=== PATIENT | female | born 1950 | race African-American/Black ===

== ENCOUNTER 2017-12-05 21:30 | Emergency (ER) | payer MEDICARE, SELFPAY ==
[2017-12-05 21:31] VITALS: BP 158/93; PULSE 75; RESP 16; TEMP 36.2; O2SAT 98; BMI 28.4
--- NOTE | 2017-12-05 22:00 | ED.VISSUMM ---
- ER Visit Summary Date of Service: 12/05/17 Chief Complaint: Rash History of Present Illness: The patient is a 67 F has had some cough and congestion symptoms over the past couple of days. She has been taking a generic [id number] cold medicine for the past 2 or 3 days. Patient states she now has itching and slight rash diffusely over her body. She denies shortness of breath. She states this medication is the only thing different from her normal routine. Physical Examination: Vital signs gross unremarkable. Head neck examination normal. Heart is regular rate and rhythm. Lung sounds are clear. Abdomen is soft nontender. Skin examination feels mild follicular irritation on the arms. No evidence of hives. Test Results: [] Emergency Department Course and Treatment: Patient is treated with Vistaril and prednisone, first doses given here. Treatment Plan: [] Disposition: Discharge Impression: Allergic drug reaction This note was generated with [employer] dictation software. It may contain incorrect words, spelling, and punctuation that were not noted in review of the chart prior to signing ED Disposition - Plan for ED Patient: Disposition: Home or Assisted Living Chief Complaint: Rash Instructions: ED Drug React Allergic Prescriptions: hydrOXYzine pamoate capsule [Vistaril] 50 mg PO TID PRN PRN #30 capsule PRN Reason: Anxiety Prednisone [Deltasone] 60 mg PO DAILY #15 tablet Referrals: Jesus Cohen MD [Primary Care Provider] - 1 Week
--- NOTE | 2017-12-05 22:03 | DCINST.ED_ITS ---
ED Disposition - Plan for ED Patient: Disposition: Home or Assisted Living Chief Complaint: Rash Instructions: ED Drug React Allergic Prescriptions: hydrOXYzine pamoate capsule [Vistaril] 50 mg PO TID PRN PRN #30 capsule PRN Reason: Anxiety Prednisone [Deltasone] 60 mg PO DAILY #15 tablet Referrals: Jesus Cohen MD [Primary Care Provider] - 1 Week
[2017-12-05] MEDS: predniSONE 20 MG Tablet 60 MG PO (22:05)
[2017-12-05] MEDS: hydrOXYzine PAM 25 MG Capsule 50 MG PO (22:05)
== END 2017-12-05 22:10 | disposition home or self-care (01) ==
PROVIDERS: Emergency Provider Emergency Medicine; Family Provider Family Medicine; PCP Family Medicine
DX: L27.1 Localized skin eruption due to drugs and medicaments taken internally (principal); T50.905A Adverse effect of unspecified drugs, medicaments and biological substances, initial encounter; Y92.9 Unspecified place or not applicable; J44.9 Chronic obstructive pulmonary disease, unspecified; F32.9 Major depressive disorder, single episode, unspecified; Z79.899 Other long term (current) drug therapy; Z72.0 Tobacco use
CPT/HCPCS: 99283

== ENCOUNTER → 2018-02-21 12:08 | Outpatient (CLI) | payer MEDICARE, SELFPAY ==
--- NOTE | 2018-02-21 14:15 | NEURO_ITS ---
NCS and/or EMG Patient Report Ordering Doctor: Gian Quiñones DATE OF SERVICE: 02/21/18 Jagdeep Medina is a 67-year-old female presents for electrodiagnostic testing of the lower limbs. She reports intermittent numbness in both thighs while lying down. Electrodiagnostic findings: Peroneal motor nerve demonstrates normal distal latency, amplitude and conduction velocity bilaterally. Normal tibial motor response bilaterally. Normal peroneal and tibial F wave. Normal H reflex bilaterally. Borderline prolonged medial plantar responses are noted. Normal superficial peroneal and sural sensory responses bilaterally. Needle EMG testing shows no evidence of denervation in any muscles tested. Motor unit action potentials were of normal amplitude and duration. Electrodiagnostic impression: This is a normal electrodiagnostic study of the lower limbs. There is no electrodiagnostic evidence for peripheral polyneur opathy or lumbosacral radiculopathy. If there are any further questions please not hesitate to contact me
== END ==
PROVIDERS: Family Provider Family Medicine; PCP Family Medicine; Referring Provider Orthopaedic Surgery; Visit Provider Orthopaedic Surgery
DX: M79.604 Pain in right leg (principal)
CPT/HCPCS: 95886; 95912

== ENCOUNTER 2018-08-26 08:23 | Emergency (ER) | payer MEDICARE, SELFPAY ==
[2018-08-26 08:26] VITALS: BP 177/94; PULSE 89; RESP 17; TEMP 36.8; O2SAT 100; BMI 27.4
--- NOTE | 2018-08-26 08:40 | CT_ITS ---
We are attempting to reach Marleny Blankenship to discuss findings. An addendum with communication details will be sent when the communication is complete. STUDY: CTA OF THE BRAIN REASON FOR EXAM: Female, 68 years old. Headache for 2 weeks dizziness and family history of aneurysm RADIATION DOSAGE (If Supplied By Facility): CTDIvol = ( 29.64 ) mGy, DLP = ( 1457.63 ) mGycm TECHNIQUE: CT angiography was performed with a multi-detector CT scanner. Data acquisition was obtained from the skull base through the vertex following intravenous administration of 100 IV Isovue 370. MIP images were reconstructed from the axial data set. Post-processing of the angiographic images was performed, with multiplanar reformation and 3D reconstruction. Individualized dose optimization techniques were used for this CT. COMPARISON: None. FINDINGS: Normal bilateral petrous carotid arteries. There is a visualized focal outpouching of the anterior aspect of the right side distal cavernous carotid that measures 5.9 x 5.2 mm. There is calcified plaque formation of the left cavernous carotid artery, with a mild stenosis (less than 50%). Normal right A1 segments of the anterior cerebral artery. There is a hypoplastic left-sided A1. Normal intact anterior communicating artery (ACOM). Normal bilateral A2 segments of the anterior cerebral arteries. Normal right M1 and M2 segments of the middle cerebral arteries, with a normal M1 bifurcation. Normal left M1 and M2 segments of the middle cerebral arteries, with a normal M1 bifurcation. There is a persistent origin of the right posterior cerebral artery with absence of the posterior communicating artery (PCOM). Normal left posterior communicating artery (PCOM). Normal bilateral vertebral arteries. Normal basilar artery with a normal basilar bifurcation. The visualized bilateral superior cerebellar (SCA) arteries are normal. Normal bilateral P1, P2 and visualized P3 segments of the posterior cerebral arteries. . There is no demonstrated abnormality of the visualized brain. The noncontrast portion of the head demonstrates mild atrophy. The basal ganglia are grossly normal. There are a few areas of low attenuation within the periventricular white matter compatible with chronic ischemic change. There is minimal atrophy of the cerebellum. There is no midline shift. There is no visualized hemorrhage. CT/CTA Head W/WO Contrast IMPRESSION: There is a 5.9 x 5.2 cm focus of outpouching of the right distal cavernous carotid artery raising concern for small focal aneurysm without evidence of surrounding hemorrhage. This follows a less than 50% narrowed cavernous carotid artery. This is seen best on the axial source images. The vascular subtraction reconstructed images are somewhat limited in this area with artifact from bone. Potentially an MRI/MRA would help better clarify this focal area. Otherwise the [place] of [place] appears grossly normal with a normal variant appearance of a hypoplastic left side A1 segment compared to the right. There is mild to moderate atrophy. There is no visualized evidence of acute hemorrhage infarct or edema. Electronically Signed: Kristina Zabala MD at 10:49 EDT Tel , Service support ,
--- NOTE | 2018-08-26 08:40 | CT_ITS ---
STUDY: CTA NECK WITH CONTRAST REASON FOR EXAM: Female, 68 years old. Headache for 2 weeks dizziness RADIATION DOSAGE (If Supplied By Facility): CTDIvol = ( 29.64 ) mGy, DLP = ( 1457.63 ) mGycm TECHNIQUE: CT angiography with multi-detector data acquisition was performed from the aortic arch to the skull base following intravenous administration of 100 IV Isovue 370. MIP images were reconstructed from the axial data set. Post-processing of the angiographic images was performed, with multiplanar reformation and 3D reconstruction. Individualized dose optimization techniques were used for this CT. COMPARISON: None. FINDINGS: AORTIC ARCH: Normal visualized aortic arch. Normal origins of the brachiocephalic, left common carotid, and left subclavian arteries. RIGHT CAROTID ARTERIES: Normal right common carotid artery (CCA). At the level of the carotid bulb and at the origin of the right internal carotid artery there is a focal linear defect within the medial aspect of the vessel that does not appear to propagate and appears to be rather focal image #131. 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 There is a distended minimally fusiform appearance of the right internal carotid artery compared to the left. There is no significant plaque formation or narrowing. There is a similar linear defect similar linear defect demonstrated within the left side internal jugular vein ingesting probable variant valve. Otherwise Normal origin of the right internal carotid (ICA) artery without a hemodynamically significant stenosis. There is atherosclerotic tortuous elongation of the cervical portion of the right internal carotid artery. Normal origin of the right external carotid artery (ECA). LEFT CAROTID ARTERIES: Normal left common carotid artery (CCA). Normal left common carotid bulb. Normal origin of the left internal carotid (ICA) artery without a hemodynamically significant stenosis. Normal visualized cervical portion of the left internal carotid artery. Normal origin of the left external carotid artery (ECA). VERTEBRAL ARTERIES: Normal bilateral vertebral arteries. There is degenerative change of the cervical spine. CT/CTA Neck W/WO Contrast IMPRESSION: No evidence of stenosis of the bilateral internal carotid arteries. There is a small focal linear defect within the medial aspect of the right proximal internal carotid artery at the bulb, most likely compatible with a small web or normal variant. Electronically Signed: Kristina Zabala MD at 11:31 EDT Tel , Service support ,
[2018-08-26] MEDS: proCHLORPERazine 10 MG/2 ML Vial IV (08:41)
[2018-08-26] MEDS: DiphenhydrAMINE 50 MG/ML Syringe 25 MG IV (08:41)
--- NOTE | 2018-08-26 08:41 | ED.VISSUMM ---
- ER Visit Summary Date of Service: 08/26/18 Chief Complaint: [] Headache for 2 weeks History of Present Illness: The patient is a 68 F [] complaint of headache and head pressure and dizziness for 2 weeks she is a family history for PLANT CYTOLOGIST aneurysm sister dying of that, has no known personal history of PLANT CYTOLOGIST aneurysm or any PLANT CYTOLOGIST disorders, she describes a constant pounding headache pressure dizziness sensation nothing makes it better or worse it is not positional does not really iker with sleep she had no nausea vomiting or fever no sinus drainage no neck stiffness, she has no numbness weakness paresthesias she really denies a past history she has no known history for hypertension Physical Examination: [] 70/80 afebrile General, no distress resting comfortably HEENT is generally unremarkable, her conjunctiva are slightly injected her extract muscles are full her vision is normal cranial nerves are normal The neck is supple no adenopathy Cardiovascular, regular rate and rhythm Lungs, clear bilateral Abdomen, soft nontender Extremities, no clubbing cyanosis or edema Neurologic, awake alert answering questions appropriately moving all 4 extremities, her gait is strong steady and stable NIH is 0 Test Results: [] Emergency Department Course and Treatment: [] And her age and her complaints screening labs are obtained Her screening labs are unremarkable, she is feeling much better headache is resolved, the CTA head neck reports are available to please review those, the radiologist called and indicated to the right cavernous sinus region there appeared to be an area that certainly could represent an aneurysm, there was no signs of any acute abnormality related to this area or any other area of her brain or vascular system, there was no acute bleeding no edema, there is also some notation on the CTA neck of either artifact or a flap abnormality please see those reports Reevaluation the patient is resting comfortably again we discussed all the findings with her I discussed the concept of an aneurysm the need for her referral today to a tertiary care center for evaluation versus her following up as an outpatient she did not wish to be transferred to a tertiary care center she preferred outpatient management she understands the potential life-threatening nature of this condition and will follow-up as instructed return for change in symptoms Treatment Plan: [] Disposition: [] Home stable declined transfer Impression: [] Headache, possible aneurysm involving the right cavernous sinus area see the CT report, no signs of active bleeding or acute process This note was generated with [employer] software. It may contain incorrect words, spelling, and punctuation that were not noted in review of the chart prior to signing ED Disposition - Plan for ED Patient: Referrals: Jesus Cohen MD [Primary Care Provider] -
--- NOTE | 2018-08-26 08:44 | ED.DCSUM_ITS ---
- ER Visit Summary Date of Service: 08/26/18 Chief Complaint: [] Headache for 2 weeks History of Present Illness: The patient is a 68 F [] complaint of headache and head pressure and dizziness for 2 weeks she is a family history for TREASURY ASSOCIATE aneurysm sister dying of that, has no known personal history of TREASURY ASSOCIATE aneurysm or any TREASURY ASSOCIATE disorders, she describes a constant pounding headache pressure dizziness sensation nothing makes it better or worse it is not positional does not really iker with sleep she had no nausea vomiting or fever no sinus drainage no neck stiffness, she has no numbness weakness paresthesias she really denies a past history she has no known history for hypertension Physical Examination: [] 70/80 afebrile General, no distress resting comfortably HEENT is generally unremarkable, her conjunctiva are slightly injected her extract muscles are full her vision is normal cranial nerves are normal The neck is supple no adenopathy Cardiovascular, regular rate and rhythm Lungs, clear bilateral Abdomen, soft nontender Extremities, no clubbing cyanosis or edema Neurologic, awake alert answering questions appropriately moving all 4 extremities, her gait is strong steady and stable NIH is 0 Test Results: [] Emergency Department Course and Treatment: [] And her age and her complaints screening labs are obtained Her screening labs are unremarkable, she is feeling much better headache is resolved, the CTA head neck reports are available to please review those, the radiologist called and indicated to the right cavernous sinus region there appeared to be an area that certainly could represent an aneurysm, there was no signs of any acute abnormality related to this area or any other area of her brain or vascular system, there was no acute bleeding no edema, there is also some notation on the CTA neck of either artifact or a flap abnormality please see those reports Reevaluation the patient is resting comfortably again we discussed all the findings with her I discussed the concept of an aneurysm the need for her referral today to a tertiary care center for evaluation versus her following up as an outpatient she did not wish to be transferred to a tertiary care center she preferred outpatient management she understands the potential life- threatening nature of this condition and will follow-up as instructed return for change in symptoms Treatment Plan: [] Disposition: [] Home stable declined transfer Impression: [] Headache, possible aneurysm involving the right cavernous sinus area see the CT report, no signs of active bleeding or acute process This note was generated with [employer] software. It may contain incorrect words, spelling, and punctuation that were not noted in review of the chart prior to signing ED Disposition - Plan for ED Patient: Referrals: Jesus Cohen MD [Primary Care Provider] -
[2018-08-26 09:03] LABS: Absolute Neutrophil Count 3.9 X10^3/uL (2.0-7.7); Basophil# 0.07 X10^3/uL; Basophil% 0.9 % (0-1); Eosinophil# 0.49 X10^3/uL; Eosinophils% 6.3 % (0-5); Hematocrit 38.4 % (37-47); Hemoglobin 13.9 g/dl (12.0-15.0); Lymphocyte % 34.7 % (19-41); Mean Corp Hgb Conc 36.2 g/gl (32-36); Mean Corpuscular Hgb 31.7 pg (27.0-32.0); Mean Corpuscular Volume 87.7 fL (81-99); Monocyte# 0.59 X10^3/uL; Monocyte% 7.6 % (0-10); Neutrophil # 3.92 X10^3/uL (2.7-7.7); Neutrophil % 50.2 % (47-70); Platelet Count 322 K/mm3 (150-450); RBC Distribution Width CV 12.9 % (11.6-14.6); RBC Distribution Width SD 40.2 fl (35.1-43.9); Red Blood Count 4.38 M/mm3 (4.2-5.4); White Blood Count 7.8 K/mm3 (4.4-11.0)
[2018-08-26 09:04] LABS: POSITIVE COUNT NO; POSITIVE DIFFERENTIAL NO; POSITIVE MORPHOLOGY NO
[2018-08-26 09:13] LABS: Anion Gap 3 (5-15); BUN 7 mg/dL (7-18); BUN/Creat Ratio 9.6 RATIO (10-20); Calcium,Total 8.8 mg/dL (8.5-10.1); Chloride 109 mmol/L (98-107); Creatinine, Serum 0.73 mg/dL (0.55-1.02); EST Glomerular Filtration Rate 84 mL/min (>60); Est Glom Filt Rate - Afr Amer 101 mL/min (>60); Glucose 98 mg/dL (74-106); Sodium Level 139 mmol/L (136-145)
[2018-08-26 10:25] VITALS: BP 189/97; PULSE 71; RESP 16; O2SAT 99
--- NOTE | 2018-08-26 11:48 | ED.DEP ---
ED Disposition - Plan for ED Patient: Instructions: ED Cephalgia Unspecified, What is a Brain Aneurysm?, Types of Brain Aneurysms, Bleeding Brain Aneurysms, Diagnosing a Brain Aneurysm Referrals: Jesus Cohen MD [Primary Care Provider] - Additional Instructions: You will need follow-up with a neurosurgeon for evaluation of the likely aneurysm, you can see a neurosurgeon at [facility], [facility], [facility], or any other large tertiary care facility, you should try to see them in the next few days return for change in symptoms
== END 2018-08-26 12:15 | disposition home or self-care (01) ==
LOC: ED 08:41
PROVIDERS: Emergency Provider Emergency Medicine; Family Provider Family Medicine; PCP Family Medicine
DX: R51 Headache (principal); I67.1 Cerebral aneurysm, nonruptured
CPT/HCPCS: 70496; 70498; 80048; 85025; 96361; 96374; 96375; 99282; J7040; Q9967; A4216

== ENCOUNTER → 2018-09-10 | Outpatient (CLI) | payer MEDICARE, SELFPAY ==
[2018-08-26 08:26] VITALS: BMI 27.4
--- NOTE | 2018-09-10 10:23 | MRI_ITS ---
STUDY: MRA OF THE HEAD WITHOUT CONTRAST REASON FOR EXAM: Female, 68 years old. aneurysm F/U ABNORMAL PRIOR IMAGING. TECHNIQUE: 3-D [id number] (TOF) imaging was performed with MIPs. The study was performed unenhanced. COMPARISON: CT dated August 26, 2017 FINDINGS: Normal bilateral petrous carotid arteries. Again noted is the outpouching of the anterior aspect of the right cavernous carotid at or very close approximation of the origin ophthalmic artery origin. The outpouching measures 6.0 x 5.0 mm. Normal left cavernous carotid artery with a normal supraclinoid bifurcation. Normal right A1 segments of the anterior cerebral artery. Normal left A1 segments of the anterior cerebral artery. Normal intact anterior communicating artery (ACOM). Normal bilateral A2 segments of the anterior cerebral arteries. Normal right M1 and M2 segments of the middle cerebral arteries, with a normal M1 bifurcation. Normal left M1 and M2 segments of the middle cerebral arteries, with a normal M1 bifurcation. Normal right posterior communicating artery (PCOM). Normal left posterior communicating artery (PCOM). Normal bilateral vertebral arteries. Normal basilar artery with a normal basilar bifurcation. The visualized bilateral superior cerebellar (SCA) arteries are normal. Normal bilateral P1, P2 and visualized P3 segments of the posterior cerebral arteries. There is no demonstrated aneurysm of the [place] of [place]. There is no major vessel occlusion or hemodynamically significant stenosis. There is no demonstrated abnormality of the visualized brain. 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 Electronically Signed: Demarco Rivera MD at 14:22 EDT Tel , Service support ,
--- NOTE | 2018-09-10 10:24 | MRI_ITS ---
STUDY: MRI BRAIN WITH AND WITHOUT CONTRAST REASON FOR EXAM: Female, 68 years old. aneurysm F/U ABNORMAL PRIOR IMAGING TECHNIQUE: Standardized multiplanar fat and water weighted pulse sequences were obtained. 17 IV Dotarem was administered for the contrast portion of the examination. COMPARISON: CT dated April 09, 2016 FINDINGS: Normal size of the ventricles and extra-axial spaces for the patient's age. Normal white matter tracts of the supratentorial brain. Normal bilateral basal ganglia. Normal thalami. There is no extra-axial fluid accumulation. Normal venous enhancement. There is no enhancing intra-axial or extra-axial abnormality. Normal sella turcica, pituitary gland, infundibular stalk, optic chiasm and hypothalamus. Normal tectal plate and pineal gland. Normal midbrain, florencio and medulla. Normal cerebellum. Normal basal cisterns. Normal bilateral temporal bones. Normal bilateral internal auditory canals. No demonstrated orbital abnormality, within the constraints of a routine brain study. Normal visualized paranasal sinuses. Normal calvarium and skull base. Normal visualized soft tissue structures. Normal visualized upper cervical spine. MRI/Brain W/WO Contrast IMPRESSION: Unremarkable unenhanced and enhanced MRI of the brain. Electronically Signed: Demarco Rivera MD at 14:14 EDT Tel , Service support ,
== END | disposition home or self-care (01) ==
LOC: MRI 10:14
PROVIDERS: Family Provider Family Medicine; PCP Family Medicine
DX: I67.1 Cerebral aneurysm, nonruptured (principal)
CPT/HCPCS: 70544; 70553; A9575

== ENCOUNTER → 2019-04-08 13:14 | Outpatient (CLI) | payer MEDICARE, SELFPAY ==
[2019-04-08 13:02] VITALS: BMI 27.4
--- NOTE | 2019-04-08 13:16 | RAD_ITS ---
STUDY: X-RAY - LEFT KNEE REASON FOR EXAM: Female, 68 years old. Knee pain. TECHNIQUE: 4 view(s) of the knee. COMPARISON: None. FINDINGS: There is demineralization of the visualized distal femur. There is demineralization of the tibia and fibula. There is mild arthrosis of the proximal tibiofibular articulation. There is no demonstrated fracture. There is minimal degenerative arthrosis of the medial femorotibial compartment. Normal lateral femorotibial compartment. There is mild degenerative arthrosis of the patellofemoral articulation. Trace amount of joint fluid seen. The soft tissue structures are unremarkable. RAD/Knee 4 or More Views IMPRESSION: Mild degenerative disease with possible trace amount of joint effusion. Otherwise normal x-ray examination of the knee. Electronically Signed: Karen Mcleod MD at 2:37 EST , Service support ,
--- NOTE | 2019-04-08 13:16 | RAD_ITS ---
STUDY: X-RAY - LUMBAR SPINE REASON FOR EXAM: Female, 68 years old. Low back pain. TECHNIQUE: 5 view(s) of the lumbar spine were obtained. COMPARISON: None FINDINGS: Normal lumbar lordosis. There is no substantial scoliosis. There is a normal alignment of the vertebrae. There is mild, multilevel endplate spondylosis of the lumbar vertebrae. There is multi-level degenerative disc disease with multi-level disc space narrowing. There is no demonstrated fracture. There is no demonstrated spondylolysis of the pars interarticulares. There is atherosclerotic calcification of the abdominal aorta without a demonstrated aneurysm. RAD/L/S Spine Min 4 Views IMPRESSION: Multilevel spondylosis/degenerative disease with no acute fracture, spondylolisthesis or pars defect. Electronically Signed: Karen Mcleod MD at 2:40 EST , Service support ,
--- NOTE | 2019-04-08 13:16 | RAD_ITS ---
STUDY: X-RAY - PELVIS REASON FOR EXAM: Female, 68 years old. Knee and low back pain. TECHNIQUE: One view of the pelvis was obtained. COMPARISON: None. FINDINGS: There is a non-specific bowel gas pattern. Normal visualized soft tissue structures. There are multiple calcified phleboliths. There is narrowing with cortical sclerosis and osteophyte formation of the sacroiliac joint consistent with degenerative osteoarthritic changes. Normal visualized bilateral superior and inferior pubic rami. There are degenerative changes of the pubic symphysis with articular narrowing and sclerosis. Normal ischial tuberosities. Normal visualized right femoral head. There is mild osteoarthritic spur formation of the right acetabular rim. There is mild to moderate articular joint space narrowing of the right hip. Normal visualized left femoral head. There is mild osteoarthritic spur formation of the left acetabular rim. There is mild to moderate articular joint space narrowing of the left hip. RAD/Pelvis 1 or 2 Views IMPRESSION: Multilevel degenerative disease as described above. Electronically Signed: Karen Mcleod MD at 2:41 EST , Service support ,
--- NOTE | 2019-04-08 13:16 | RAD_ITS ---
STUDY: X-RAY - RIGHT KNEE REASON FOR EXAM: Female, 68 years old. Knee pain. TECHNIQUE: 4 view(s) of the knee. COMPARISON: None. FINDINGS: There is a total knee prosthesis in place with normal alignment. Otherwise normal visualized distal femur. Normal visualized proximal tibia and fibula. Normal proximal tibiofibular articulation. There is no demonstrated fracture. There is no evidence of lucency to suggest acute fracture. No distinct loosening. Trace amount of joint fluid seen. Sclerosis with postoperative changes of the posterior patella seen. There is mild soft tissue swelling along the infrapatellar tendon. RAD/Knee 4 or More Views IMPRESSION: Total knee prosthesis in place with normal alignment. Trace amount of joint fluid along with mild anterior soft tissue swelling. No acute fracture or subluxation. Electronically Signed: Karen Mcleod MD at 2:44 EST , Service support ,
== END ==
PROVIDERS: Family Provider Family Medicine; PCP Family Medicine; Referring Provider Orthopaedic Surgery; Visit Provider Orthopaedic Surgery
DX: M79.605 Pain in left leg (principal); M79.604 Pain in right leg
CPT/HCPCS: 72110; 72170; 73564

== ENCOUNTER → 2020-07-13 11:55 | Outpatient (CLI) | payer MEDICARE, MEDICAID, SELFPAY ==
[2019-04-08 13:02] VITALS: BMI 27.4
[2020-07-13 15:24] LABS: Absolute Lymphocyte Count 2.17 X10^3/uL (0.83-4.51); Absolute Neutrophil Count 5.4 X10^3/uL (2.0-7.7); Basophil# 0.08 X10^3/uL; Basophil% 0.9 % (0-1); Eosinophil# 0.37 X10^3/uL; Eosinophils% 4.2 % (0-5); Hematocrit 34.6 % (37-47); Hemoglobin 12.9 g/dL (12.0-15.0); Lymphocyte # 2.17 X10^3/ul (4.0); Lymphocyte % 24.5 % (19-41); Mean Corp Hgb Conc 37.3 g/dL (32-36); Mean Corpuscular Hgb 35.3 pg (27.0-32.0); Mean Corpuscular Volume 94.8 fL (81-99); Mean Platelet Vol. 11.7 fl (6.2-12.0); Monocyte# 0.82 X10^3/uL; Monocyte% 9.3 % (0-10); NRBC Flagged by Analyzer 0 % (0-5); Neutrophil # 5.37 X10^3/uL (2.7-7.7); Neutrophil % 60.6 % (47-70); Platelet Count 260 K/mm3 (150-450); RBC Distribution Width CV 14.4 % (11.6-14.6); RBC Distribution Width SD 47.1 fl (35.1-43.9); Red Blood Count 3.65 M/mm3 (4.2-5.4); White Blood Count 8.9 K/mm3 (4.4-11.0)
[2020-07-13 15:48] LABS: Vitamin D,25 Hydroxy 58.3 ng/mL
[2020-07-13 15:49] LABS: AST(SGOT) 14 U/L (15-37); Alanine Aminotransfer ALT/SGPT 20 U/L (13-56); Alkaline Phosphatase 100 U/L (45-117); Anion Gap 9 (5-15); BUN 11 mg/dL (7-18); BUN/Creat Ratio 13.6 RATIO (10-20); Calcium,Total 9.2 mg/dL (8.5-10.1); Chloride 106 mmol/L (98-107); Creatinine, Serum 0.81 mg/dL (0.55-1.02); EST Glomerular Filtration Rate 74 mL/min (>60); Est Glom Filt Rate - Afr Amer 90 mL/min (>60); Globulin 4.1 g/dL (2.2-4.2); Glucose 88 mg/dL (74-106); Potassium 3.8 mmol/L (3.5-5.1); Protein, Total 8.1 g/dL (6.4-8.2); Sodium Level 140 mmol/L (136-145); Thyroid Stim Hormone (TSH) 1.11 uIU/mL (0.358-3.74)
== END ==
PROVIDERS: PCP Family Medicine; Referring Provider Family Medicine; Visit Provider Family Medicine
DX: I10 Essential (primary) hypertension (principal); J42 Unspecified chronic bronchitis; E55.9 Vitamin D deficiency, unspecified; F33.2 Major depressive disorder, recurrent severe without psychotic features
CPT/HCPCS: 36415; 80053; 82306; 84443; 85025

== ENCOUNTER → 2022-09-22 | Outpatient (CLI) | payer MEDICARE, MEDICAID, SELFPAY ==
[2022-09-22 12:13] LABS: Absolute Lymphocyte Count 2.82 X10^3/uL (0.83-4.51); Absolute Neutrophil Count 6.6 X10^3/uL (2.0-7.7); Basophil# 0.07 X10^3/uL; Basophil% 0.7 % (0-1); Eosinophil# 0.22 X10^3/uL; Eosinophils% 2.1 % (0-5); Hematocrit 36.8 % (37-47); Hemoglobin 12.8 g/dL (12.0-15.0); Lymphocyte # 2.82 X10^3/ul (0.83-4.51); Lymphocyte % 26.5 % (19-41); Mean Corp Hgb Conc 34.8 g/dL (32-36); Mean Corpuscular Hgb 31.5 pg (27.0-32.0); Mean Corpuscular Volume 90.6 fL (81-99); Mean Platelet Vol. 11.7 fl (6.2-12.0); Monocyte# 0.91 X10^3/uL; Monocyte% 8.6 % (0-10); NRBC Flagged by Analyzer 0 % (0-5); Neutrophil # 6.57 X10^3/uL (2.7-7.7); Neutrophil % 61.7 % (47-70); Platelet Count 321 K/mm3 (150-450); RBC Distribution Width CV 13.2 % (11.6-14.6); RBC Distribution Width SD 43.4 fl (35.1-43.9); Red Blood Count 4.06 M/mm3 (4.2-5.4); White Blood Count 10.6 K/mm3 (4.4-11.0)
[2022-09-22 12:25] LABS: AST(SGOT) 14 U/L (15-37); Alanine Aminotransfer ALT/SGPT 23 U/L (13-56); Albumin, Serum 3.8 g/dL (3.2-5.0); Alkaline Phosphatase 92 U/L (45-117); Anion Gap 4 (5-15); BUN 13 mg/dL (7-18); BUN/Creat Ratio 19.2 RATIO (10-20); Calcium,Total 9.1 mg/dL (8.5-10.1); Chloride 108 mmol/L (98-107); Creatinine, Serum 0.68 mg/dL (0.55-1.02); EST Glomerular Filtration Rate 90 mL/min (>60); Est Glom Filt Rate - Afr Amer 109 mL/min (>60); Globulin 3.9 g/dL (2.2-4.2); Glucose 91 mg/dL (74-106); Potassium 3.6 mmol/L (3.5-5.1); Protein, Total 7.7 g/dL (6.4-8.2); Sodium Level 140 mmol/L (136-145)
[2022-09-22 12:48] LABS: Microalbumin:Creatinine Ratio 16.8 mg/g CRE (<30 mg/g CRE)
== END | disposition home or self-care (01) ==
LOC: MFPLAB 09:52
PROVIDERS: PCP Family Medicine; Visit Provider Family Medicine
DX: I10 Essential (primary) hypertension (principal); J44.9 Chronic obstructive pulmonary disease, unspecified
CPT/HCPCS: 36415; 80053; 82043; 82570; 85025

== ENCOUNTER → 2023-08-21 | Outpatient (CLI) | payer MEDICARE, MEDICAID, SELFPAY ==
[2023-08-21 12:34] LABS: Absolute Lymphocyte Count 2.07 X10^3/uL (0.83-4.51); Absolute Neutrophil Count 5.6 X10^3/uL (2.0-7.7); Basophil# 0.05 X10^3/uL; Basophil% 0.6 % (0-1); Eosinophil# 0.26 X10^3/uL; Eosinophils% 2.9 % (0-5); Hematocrit 36.3 % (37-47); Hemoglobin 12.7 g/dL (12.0-15.0); Lymphocyte # 2.07 X10^3/ul (0.83-4.51); Lymphocyte % 23.3 % (19-41); Mean Corpuscular Hgb 31.4 pg (27.0-32.0); Mean Corpuscular Volume 89.9 fL (81-99); Mean Platelet Vol. 11.8 fl (6.2-12.0); Monocyte# 0.85 X10^3/uL; Monocyte% 9.6 % (0-10); NRBC Flagged by Analyzer 0 % (0-5); Neutrophil % 63.1 % (47-70); Platelet Count 320 K/mm3 (150-450); RBC Distribution Width CV 12.5 % (11.6-14.6); RBC Distribution Width SD 40.7 fl (35.1-43.9); Red Blood Count 4.04 M/mm3 (4.2-5.4); White Blood Count 8.9 K/mm3 (4.4-11.0)
[2023-08-21 13:12] LABS: AST(SGOT) 16 U/L (15-37); Alanine Aminotransfer ALT/SGPT 23 U/L (13-56); Alkaline Phosphatase 117 U/L (45-117); Anion Gap 7 (5-15); BUN 14 mg/dL (7-18); BUN/Creat Ratio 17.2 RATIO (10-20); Calcium,Total 9.4 mg/dL (8.5-10.1); Chloride 105 mmol/L (98-107); Creatinine, Serum 0.81 mg/dL (0.55-1.02); EST Glomerular Filtration Rate 73 mL/min (>60); Est Glom Filt Rate - Afr Amer 88 mL/min (>60); Globulin 4.1 g/dL (2.2-4.2); Glucose 89 mg/dL (74-106); Protein, Total 8.1 g/dL (6.4-8.2); Sodium Level 136 mmol/L (136-145)
[2023-08-21 13:18] LABS: Microalbumin:Creatinine Ratio 19.7 mg/g CRE (<30 mg/g CRE)
== END | disposition home or self-care (01) ==
LOC: MFPLAB 09:33
PROVIDERS: PCP Family Medicine; Visit Provider Family Medicine
DX: I10 Essential (primary) hypertension (principal); J44.9 Chronic obstructive pulmonary disease, unspecified
CPT/HCPCS: 36415; 80053; 82043; 82570; 85025

== ENCOUNTER → 2024-02-20 | Outpatient (CLI) | payer MEDICARE, MEDICAID, SELFPAY ==
[2024-02-20 12:26] LABS: Absolute Lymphocyte Count 1.95 X10^3/uL (0.83-4.51); Basophil# 0.08 X10^3/uL; Basophil% 0.9 % (0-1); Eosinophil# 0.36 X10^3/uL; Eosinophils% 3.9 % (0-5); Hemoglobin 12.3 g/dL (12.0-15.0); Lymphocyte # 1.95 X10^3/ul (0.83-4.51); Lymphocyte % 21.2 % (19-41); Mean Corp Hgb Conc 35.1 g/dL (32-36); Mean Corpuscular Hgb 31.7 pg (27.0-32.0); Mean Corpuscular Volume 90.2 fL (81-99); Mean Platelet Vol. 10.9 fl (6.2-12.0); Monocyte# 0.79 X10^3/uL; Monocyte% 8.6 % (0-10); NRBC Flagged by Analyzer 0 % (0-5); Neutrophil # 5.99 X10^3/uL (2.7-7.7); Platelet Count 305 K/mm3 (150-450); RBC Distribution Width CV 12.8 % (11.6-14.6); RBC Distribution Width SD 41.8 fl (35.1-43.9); Red Blood Count 3.88 M/mm3 (4.2-5.4); White Blood Count 9.2 K/mm3 (4.4-11.0)
[2024-02-20 13:22] LABS: AST(SGOT) 24 U/L (15-37); Alanine Aminotransfer ALT/SGPT 20 U/L (13-56); Albumin, Serum 3.8 g/dL (3.2-5.0); Alkaline Phosphatase 114 U/L (45-117); Anion Gap 8 (5-15); BUN 8 mg/dL (7-18); Calcium,Total 9.4 mg/dL (8.5-10.1); Chloride 111 mmol/L (98-107); Creatinine, Serum 0.66 mg/dL (0.55-1.02); EST Glomerular Filtration Rate 92 mL/min (>60); Est Glom Filt Rate - Afr Amer 111 mL/min (>60); Globulin 3.7 g/dL (2.2-4.2); Glucose 87 mg/dL (74-106); Potassium 3.6 mmol/L (3.5-5.1); Protein, Total 7.5 g/dL (6.4-8.2); Sodium Level 141 mmol/L (136-145)
== END | disposition home or self-care (01) ==
LOC: MTLAB 10:37
PROVIDERS: PCP Family Medicine; Referring Provider Family Medicine; Visit Provider Family Medicine
DX: J44.9 Chronic obstructive pulmonary disease, unspecified (principal); F33.2 Major depressive disorder, recurrent severe without psychotic features; I10 Essential (primary) hypertension
CPT/HCPCS: 36415; 80053; 84443; 85025

== ENCOUNTER 2025-02-24 11:11 | Outpatient (CLI) | payer MEDICARE, MEDICAID, SELFPAY ==
[2025-02-24 12:31] LABS: Hematocrit 36.9 % (37-47); Hemoglobin 13.3 g/dL (12.0-15.0); Immature Granulocytes Count 0.050 X10^3/uL (0.0-0.0); Mean Corp Hgb Conc 36.0 g/dL (32-36); Mean Corpuscular Volume 89.1 fL (81-99); Mean Platelet Vol. 11.0 fl (6.2-12.0); NRBC Flagged by Analyzer 0 % (0-5); Platelet Count 299 K/mm3 (150-450); RBC Distribution Width CV 12.6 % (11.6-14.6); RBC Distribution Width SD 41.2 fl (35.1-43.9); Red Blood Count 4.14 M/mm3 (4.2-5.4); White Blood Count 8.3 K/mm3 (4.4-11.0)
[2025-02-24 15:46] LABS: Microalbumin,Random Urine < 12.0 mg/L (<20 mg/L)
[2025-02-24 15:55] LABS: AST(SGOT) 19 U/L (<=31); Alanine Aminotransfer ALT/SGPT 14 U/L (<=34); Albumin, Serum 4.5 g/dL (3.4-4.8); Alkaline Phosphatase 110 U/L (35-104); Anion Gap 11 (5-15); BUN 12 mg/dL (4-19); BUN/Creat Ratio 17.7 RATIO (10-20); Calcium,Total 9.6 mg/dL (7.6-11.0); Carbon Dioxide 24.0 mmol/L (21.0-32.0); Chloride 104 mmol/L (98-108); Globulin 3.5 g/dL (2.2-4.2); Glucose 95 mg/dL (70-99); Potassium 3.9 mmol/L (3.3-5.1); Vitamin D,25 Hydroxy 33.6 ng/mL (30-100)
== END 2025-02-24 23:59 | disposition home or self-care (01) ==
LOC: MTLAB 11:13
PROVIDERS: PCP Family Medicine; Referring Provider Family Medicine; Visit Provider Family Medicine
DX: J44.9 Chronic obstructive pulmonary disease, unspecified (principal); I10 Essential (primary) hypertension
CPT/HCPCS: 36415; 80053; 82043; 82306; 85025